=== PATIENT | male | born 1940 ===

== ENCOUNTER 2018-12-23 08:52 | Inpatient (IN) | payer MEDICARE ==
--- NOTE | 2018-12-19 10:30 | Rehab Joint Replacement Pre-Op ---
Rehab Joint Replacement Pre-Op - Pre-Op Visit Reviewed Items Scheduled for Post Op Visit: No Pre-Op Visit Comment: Pt states that he has had total knee replacements previously but not hip surgery. Pt states that he had PT prior to this surgery and after his knee surgeries and plans to use that same clinic after this surgery as well. Josue Hose/Garment Measurement TKR - Knee High: N/A Josue Hose/Garment Measure THR - Thigh High: Yes (Ankle circumference 9", calf 15 1/4", thigh 22 1/4", leg length 29 1/2" from gluteal fold to heel. Pt measures for large regular compression garments.) Exercise Reviewed: Yes Stair Climbing: Yes Cane/Walker/Crutch Training: Yes Vend Equipment - Cane or Walker and OT Kit: N/A List of Venders in the Area: Yes Shower Chair Transfers: Yes Car Transfers: Yes Bed Transfers: Yes Medical History Forms Issued: N/A Functional Scale Forms Issued: N/A Pre-Operative Intake Form - Scheduled Procedure Type of Surgical Procedure: Total Hip - Right - Patient Living Situation Current Living Situation: Spouse/Significant Other Current Housing Situation: One Story Home - Entrance Detail Current Housing Entrance: Steps, Hand Rails - None Number of Steps: 3 - Bathroom Detail Bathroom Setup: Other (Pt does have grab bars in the walk in shower and a hand held shower head.) Toilet Setup: Elevated Toilet, Grab Bars Not Present - Post-Op Home Assistance Pt has meals following surgery?: Yes Pt has transportation following surgery?: Yes - Equipment Detail Currently Own/Have Access To: Walker, Cane - Work Status Current Work Status: Retired - Additional Detail Patient Returning Home In: Other (Pt to go home in a van after surgery.) Patient is scheduled for the following: Home PT (Pt states that he is to have 2 weeks of in home PT then transfer to outpatient near his home.)
[~2018-12-23 08:52] MED LIST: ACETAMINOPHEN 500 MG TABLET PO ONE; CEFAZOLIN 2 Gram 2 GM/50 ML BAG IVPB ONE; CELECOXIB 100 MG CAPSULE PO ONE; FAMOTIDINE 20MG TABLET PO ONE; METOCLOPRAMIDE 10 MG TABLET PO ONE; SCOPOLAMINE 1 PATCH TDSY TD ONE; VANCOMYCIN 1GM/200ML PREMIX 1 GM/200 ML PIGGYBACK IVPB ONE
[2018-12-23] MEDS ORDERED: RINGERS SOLUTION,LACTATED 1,000 ML IV ONE ×2 (12:45→14:56)
[2018-12-23 13:07] LABS: ABO GROUP A; ANTIBODY SCREEN NEGATIVE (NEGATIVE); RH TYPE POSITIVE
[2018-12-23] MEDS ORDERED: ACETAMINOPHEN W/ CODEINE 300MG/30MG TABLET PO PRN ×2 (14:16)
[2018-12-23] MEDS ORDERED: HYDROMORPHONE HCL 2 MG/ML VIAL IM PRN ×2 (14:16)
[2018-12-23] MEDS ORDERED: BISACODYL 10 MG SUPP RC PRN (14:16)
[2018-12-23] MEDS ORDERED: ONDANSETRON HCL IV 4 MG/2 ML VIAL IVP PRN (14:16)
[2018-12-23] MEDS ORDERED: KETOROLAC 30 MG/ML VIAL IVP PRN (14:16)
[2018-12-23] MEDS ORDERED: DIPHENHYDRAMINE HCL 25 MG CAPSULE PO PRN (14:16)
[2018-12-23] MEDS ORDERED: TRAMADOL HCL 50 MG TABLET PO PRN ×2 (14:16)
[2018-12-23] MEDS ORDERED: NALOXONE 0.4 MG/1 ML VIAL IVP PRN (14:16)
[2018-12-23] MEDS ORDERED: HYDROCODONE/APAP 5/325MG TABLET PO PRN ×2 (14:16)
[2018-12-23] MEDS ORDERED: ACETAMINOPHEN W/ CODEINE 300MG/60MG TABLET PO PRN (14:16)
[2018-12-23] MEDS ORDERED: PROMETHAZINE HCL 12.5 MG in 0.9 % SODIUM CHLORIDE 100ML 50 ML IVPB PRN (14:16)
[2018-12-23] MEDS ORDERED: AL HYDROX/MAG HYDROX 30ML UD PO PRN (14:16)
[2018-12-23] MEDS ORDERED: ZOLPIDEM TARTRATE 5 MG TABLET PO PRN (14:16)
[2018-12-23] MEDS ORDERED: METOCLOPRAMIDE HCL 10 MG/2 ML VIAL IVP PRN (14:16)
[2018-12-23] MEDS ORDERED: MAGNESIUM HYDROXIDE 30 ML UDC PO PRN (14:16)
[2018-12-23] MEDS ORDERED: ACETAMINOPHEN 325 MG TAB PO PRN (14:16)
[2018-12-23] MEDS ORDERED: HYDROCODONE/APAP 7.5/325MG TABLET PO PRN (14:16)
[2018-12-23] MEDS ORDERED: BUPIVACAINE 0.5% W/EPI MPF 30 ML VIAL SQ ONE ×2 (14:52)
[2018-12-23] MEDS ORDERED: BUPIVACAINE LIPOSOME 266MG/20ML VIAL SQ ONE (14:52)
[2018-12-23] MEDS ORDERED: VANCOMYCIN HCL 1 GM VIAL IR ONE (14:54)
[2018-12-23] MEDS ORDERED: VANCOMYCIN HCL 1 GM VIAL IU ONE (14:54)
[2018-12-23] MEDS ORDERED: DEXTROSE 5 % AND 0.9 % NACL 1,000 ML IV PRN (16:30)
[2018-12-23] MEDS ORDERED: KETOROLAC 30 MG/ML VIAL IVP ONE (16:49)
[2018-12-23] MEDS: FERROUS SULFATE 325 MG TAB PO SCH (21:19)
[2018-12-23] MEDS: DOCUSATE SODIUM 100 MG CAPSULE PO SCH (21:19)
[2018-12-23] MEDS: METFORMIN 500MG PO SCH (21:22)
[2018-12-23] MEDS: GLIPIZIDE 5 MG PO SCH (21:22)
[2018-12-24] MEDS: VANCOMYCIN 1GM/200ML PREMIX 1 GM/200 ML PIGGYBACK IVPB SCH ×2 (00:28→11:04)
[2018-12-24 07:09] LABS: HEMATOCRIT 42.6 % (42.0-52.0); HEMOGLOBIN 13.5 gm/dl (14.0-18.0)
--- NOTE | 2018-12-24 08:26 | RADIOLOGY REPORT ---
EXAM: RIGHT HIP HISTORY: POSTOP HIP REPLACEMENT. TECHNIQUE: Portable AP view of the right hip was obtained. Comparison: None. FINDINGS: The prosthesis appears appropriately positioned. No sign of any fracture or any immediate complication. IMPRESSION: RIGHT HIP REPLACEMENT WITHOUT ANY IMMEDIATE BONE COMPLICATIONS EVIDENT. JOB NUMBER: [id number] MTDD
--- NOTE | 2018-12-24 09:56 | Rehab Evaluation ---
Patient Information - Patient Information Diagnosis: R hip DJD Ordered Treatment: PT Evaluate and Treat Status: Initial Evaluation Surgery: Yes (R THR) Date of Surgery: 12/23/18 Past Medical/Surgical Hx: PAST MEDICAL/SURGICAL HISTORY Past Surgical History PARTIAL AMPUTATION THUMB BILAT TKA C SCOPES BILAT CATARACTS TONSILS PMH - Respiratory Hx Respiratory Disorders No PMH - Cardiovascular Hx Cardiovascular Disorders Yes Exercise Tolerance Fair Comment: HYPERLIPIDEMIA PMH - Neuro Hx Neurological Disorders No PMH - GI Hx Gastrointestinal Disorders Yes PMH - Hx Genitourinary Disorders Yes Hx Bladder Problem Yes: NOCTURIA WITH URGENCY Hx Prostate Problems Yes: ELEVATED PSA PMH - Endocrine Hx Endocrine Disorders Yes Hx Diabetes Yes: DX'D 2012 Hx of NIDDM Yes Comment: BLOOD SUGARS RUNNING AROUND 150 RIGHT NOW PMH - Musculoskeletal Hx Musculoskeletal Disorders Yes Hx Arthritis Yes: RA PMH - Psych Hx Psychiatric Problems Yes Hx Depression Yes: SITUATIONAL PMH - Hematology/Oncology Hx Hematology/Oncology No Disorders Premorbid Status: Detail (The patient was independent with all mobility prior to surgery.) Social History: Detail (The patient lives with spouse in a one story house with 3 steps and no handrails at the enterance.) Precautions: [place], Fall, Other (THR precautions) - Time With Patient Total Time Spent With Patient (Min): 30 Treatment Procedures: Detail (Initial Evaluation, low complexity) Subjective Information - Subjective Information Per Patient (The patient had minimal complaints of R hip pain.) Objective Data - Mental Status Patient Orientation: Oriented x3 - Visual Perception Appears within normal limits for therapeutic activities - ROM Not within normal limits (The patient's R hip in within total hip replacement precautions. All other LE AROM is WNL.) - Strength/Tone Not within normal limits (The patient's R LE strength was not tested s/p surgery however functionally patient exhibits weakness in hip musculature( pt. requires strap to lift LE in and out of bed and cannot complete hip abduction supine). The patient's L LE strength is WFL.) - Bed Mobility Independent (The patient is able to complete supine to sit independently with use of strap to lift R LE and handrails. The patient scooting up in bed independently with use of handrails.) - Transfers Independent (The patient was independent with sit to and from stand transfer.) - Balance Balance Sitting: Good Balance Standing: Good - Sensation Intact - Gait Detail (The patient ambulated with front wheeled walker WBAT on the R LE independently a distance of 100 feet x 1. The patient ambulated on 3 stairs with use of standard cane and railing using proper technique with supervision for safety.) Therapy Assessment - Therapy Assessment Detail (The patient was independent with ambulation and transfers. The patient required use of strap and handrails with bed mobility. Pt. had leg construction skills teacher at home and states his will assist with bed mobility if needed.) Patient Education - Patient Education Teaching Topic: Exercise/Activity (The patient completed THR HEP including: hip abduction with strap, gluteal squeezes, quad sets, hamstring sets, ankle pumps, and heel slides.), Precautions (The patient recalled 2 out of 3 hip precautions without verbal cues. The pt. demonstrated good understanding of THR precautions.) Response: Reinforcement Needed Teaching Method: Discussion, Handout Teaching Recipient: Patient Barriers To Learning: None Problem List - Problem List Physical Therapy Problem List: Detail (Decreased R LE strength s/p surgery.) Goals - Goals Physical Therapy Goals: The patient has met all inpatient PT goals. Prognosis - Prognosis Good Plan - Plan Physical Therapy Plan: The patient is discharged from inpatient PT. The patient is to receive Home PT.
[2018-12-24] MEDS ORDERED: FOLIC ACID 1MG PO SCH (10:00)
[2018-12-24] MEDS ORDERED: CELECOXIB 100 MG CAPSULE PO SCH (10:00)
[2018-12-24] MEDS ORDERED: RIVAROXABAN 10 MG TABLET PO SCH (10:00)
[2018-12-24] MEDS ORDERED: FENOFIBRATE 145MG PO SCH (10:00)
[2018-12-24] MEDS: FERROUS SULFATE 325 MG TAB PO SCH (11:00)
[2018-12-24] MEDS: DOCUSATE SODIUM 100 MG CAPSULE PO SCH (11:01)
[2018-12-24] MEDS: GLIPIZIDE 5 MG PO SCH (11:03)
[2018-12-24] MEDS: METFORMIN 500MG PO SCH (11:04)
[2018-12-24] MEDS ORDERED: PHENYLEPHRINE HCL 10 MG/ML VIAL IVP ONE (12:00)
[2018-12-24] MEDS ORDERED: EPHEDRINE SULFATE 50 MG/ML ML IV ONE (12:00)
[2018-12-24] MEDS ORDERED: *PACU ONLY* KETAMINE HCL 10 MG/ML (20ML) VIAL IV ONE (12:00)
[2018-12-24] MEDS ORDERED: PROPOFOL 10 MG/ML VIAL IV ONE (12:00)
[2018-12-24] MEDS ORDERED: LIDOCAINE 2% MDV (20MG/ML) 20ML VIAL IV ONE (12:00)
[2018-12-24] MEDS ORDERED: MIDAZOLAM HCL 2MG/2ML VIAL IV ONE (12:00)
--- NOTE | 2018-12-24 12:12 | Rehab Evaluation ---
Patient Information - Patient Information Diagnosis: R hip DJD Ordered Treatment: OT Evaluate and Treat Status: Initial Evaluation Surgery: Yes (R THR) Date of Surgery: 12/23/18 Past Medical/Surgical Hx: PAST MEDICAL/SURGICAL HISTORY Past Surgical History PARTIAL AMPUTATION THUMB BILAT TKA C SCOPES BILAT CATARACTS TONSILS PMH - Respiratory Hx Respiratory Disorders No PMH - Cardiovascular Hx Cardiovascular Disorders Yes Exercise Tolerance Fair Comment: HYPERLIPIDEMIA PMH - Neuro Hx Neurological Disorders No PMH - GI Hx Gastrointestinal Disorders Yes PMH - Hx Genitourinary Disorders Yes Hx Bladder Problem Yes: NOCTURIA WITH URGENCY Hx Prostate Problems Yes: ELEVATED PSA PMH - Endocrine Hx Endocrine Disorders Yes Hx Diabetes Yes: DX'D 2012 Hx of NIDDM Yes Comment: BLOOD SUGARS RUNNING AROUND 150 RIGHT NOW PMH - Musculoskeletal Hx Musculoskeletal Disorders Yes Hx Arthritis Yes: RA PMH - Psych Hx Psychiatric Problems Yes Hx Depression Yes: SITUATIONAL PMH - Hematology/Oncology Hx Hematology/Oncology No Disorders Premorbid Status: Detail (The patient was independent with all mobility prior to surgery. Spouse was responsible for home mgmt, meal prep and laundry tasks.) Social History: Detail (The patient lives with spouse in a one story house with 3 steps and no handrails at the entrance. He has a walk in shower with grab bars but no seat and an elevated toilet with no grab bars. He has a straight cane, 2 wheeled walker, long shoe horn and sock aid.) Precautions: [place], Fall, Other (THR precautions) - Time With Patient Total Time Spent With Patient (Min): 40 Treatment Procedures: Detail (OT eval low complexity) Subjective Information - Subjective Information Per Patient, Other (Spouse) Objective Data - Pain Pain Present: Yes (03/21) - Mental Status Patient Orientation: Oriented x3 - Visual Perception Appears within normal limits for therapeutic activities - ROM Within normal limits ([place] UE AROM WNL) - Strength/Tone Within normal limits ([place] UE strength WNL) - Coordination Appears within normal limits for therapeutic activities - Bed Mobility Needs Assist (Pt requires assist to move right LE to EOB. He reports he has a leg web manager at home to use.) - Transfers Independent (Ind with sit to stand from EOB) - Balance Balance Sitting: Good Balance Standing: Good - Sensation Intact - ADL's/IADL's Detail (Pt educated and able to demonstrate learning of modified LE dressing techniques using chargeback specialist and long shoe horn while adhering to total hip precautions including doffing slipper socks, donning pants and tennis shoes. Pt reports he knows how to use the sock aid. Pt purchased a chargeback specialist and long bath sponge. Reviewed kitchen and shower safety and modifications, pt verbalized understanding.) Therapy Assessment - Therapy Assessment Detail (Pt is Ind with modified LE dressing techniques.) Problem List - Problem List Physical Therapy Problem List: Detail (Decreased R LE strength s/p surgery.) Occupational Therapy Problem List: Detail (No current IP OT problems identified.) Goals - Goals Physical Therapy Goals: The patient has met all inpatient PT goals. Occupational Therapy Goals: No current IP OT goals identified. Prognosis - Prognosis Good Plan - Plan Physical Therapy Plan: The patient is discharged from inpatient PT. The patient is to receive Home PT. Occupational Therapy Plan: No further IP OT recommended. Thank you for this referral.
--- NOTE | 2018-12-25 08:20 | Operative Note ---
DATE OF SURGERY: 12/23/2018 PREOPERATIVE DIAGNOSIS: Right hip end-stage arthrosis. POSTOPERATIVE DIAGNOSIS: Right hip end-stage arthrosis. OPERATION: Right total hip arthroplasty. SURGEON: Andrew Graves MD ANESTHESIA: Spinal. ANESTHESIA PROVIDER: GRICEL Adkins COMPLICATIONS: None. ESTIMATED BLOOD LOSS: Minimal. OPERATIVE FINDINGS: Severe [id number] hip arthrosis. COMPONENTS PLACED: A 2 g vancomycin cemented Neil [employer] Nephew cemented Synergy collared stem, high offset size 14 with a 32 plus 0 mm cobalt chrome femoral head component, a 52 mm 3-hole Reflection acetabular shell component with 1 acetabular screw centrally-threaded cap and 2 other screw caps, and then a 35- degree hooded highly cross-linked polyethylene liner. INDICATION: This is a 78-year-old male who has had persistent pain and dysfunction in his hip for several years. Failed nonoperative treatments. Scheduled for hip replacement. I explained all risks and benefits in detail for the diagnosis and procedure including but not limited to infection, nerve injury, vessel injury, persistent pain, stiffness, numbness, tingling in his hip, periprosthetic fracture, need for resection arthroplasty should the components become infected or loosen, nerve injury, vessel injury, blood clot, limb length discrepancy, need for further procedures, and need for anticoagulation to prevent blood clots and risks associated with these medications. All his questions were answered. The rehab course was outlined. He agreed to proceed. PROCEDURE: The patient brought to the OR and placed in the left lateral decubitus position. The right hip and lower extremity prepped and draped in sterile fashion. The right hip was prepped again using Chloraprep and draped. Intraoperative timeout was performed. Next, we marked an incision over the posterior gluteal area for a posterior approach. Infiltrated with 0.5% Marcaine with epinephrine, 2 g tranexamic acid, Exparel mixture. We used Aquamantys cautery the entire case cauterizing each layer of tissue. Skin and subcutaneous tissue dissected down to gluteal fascia, split longitudinally. The subgluteal plane was bluntly dissected. Skin was cauterized with Aquamantys. The subgluteal plane was bluntly dissected, placed the self-retainer in there, identified the capsule and sciatic nerve, carefully protected at all times. Next, then released the short external rotators. Then incised the capsule along the neck and then transverse superiorly and inferiorly to release the capsule and then dislocated the femoral head without difficulty. It was a deformed femoral head, oval shape, devoid of any cartilage. We resected the femoral head about 1.5 cm above the lesser trochanter and inserted the box osteotome and started reaming by hand with 8 mm reamer working in 1 mm increments up to size 14. We stopped there, as it was a good fit proximally and distally and it was a preoperative measure. Next, we then broached to 12 in 15 degrees anteversion calcar plane and then a 13 and then a 14. We stopped there and planned on using a 14 cemented stem. Next, then attention turned to the acetabulum. Released the capsule anteriorly and inferiorly. Placed a retractor there and then placed another inferior acetabular retractor. Then released some of the labrum and capsule around the periphery. Next, we started reaming in 1 mm increments and 45 degrees inclination and 20 degrees anteversion until we reamed up to a size 51 mm reamer. We had a good peripheral and central fit. Next, we inserted the 52 shell and it fit nicely, securely peripherally and centrally and again 45 degrees inclination and 20 degrees anteversion. Next, we brought in the real 3-hole acetabular Reflection shell component after irrigating the copiously the acetabulum, impacted that down using the helicopter guide again in 45 degrees inclination and 20 degrees anteversion. Next, we drilled the posterior central superior quadrant screw hole and inserted the 40 mm screw there. We had excellent purchase. Next, we then placed the trial liner and then the trial stem was placed. We did a trial reduction. Best combination of range of motion, stability, and limb lengths was with a 32 plus 0 mm femoral head component. This allowed for symmetric leg lengths, flexion to 90, internal rotation to 70-80 before the hip dislocated. Stability with extension, external rotation. This is the size that we used. Next, we removed all trial components, irrigated copiously, mixed cement, and placed the 2 screw caps centrally-threaded screw cap in the acetabular shell and then impacted down the real acetabular liner with the ojhnson in posterior supine quadrant. Then placed the cement restricted distally in the femoral canal, injected the cement in symmetrical technique, removed the suction catheter and then inserted the real femoral stem with the johnson again in 15 degrees of anteversion until it was flush with the medial calcar. We held it there until the cement hardened. Next, we cleaned and dried the trunnion and impacted down the real femoral head. Next, we reduced the hip and found that the range of motion to be the same. We irrigated copiously. We thoroughly cauterized with our Aquamantys electrocautery all deep layers, capsule, short external rotators working out superficially to the gluteus and subcutaneous skin. Next, we closed securely the gluteal fascia with running #2 quill suture, again closed the skin with buried 2-0 Vicryl and a TIFFANIE dressing applied. The patient tolerated the procedure well. No intraoperative complications. All sponge, needle, and blade counts correct. Recovery stable. Neurovascularly intact. He can be discharged to the floor and likely discharged in 1 day tomorrow home with followup therapy. KARI
== END 2018-12-24 13:06 | disposition home or self-care (01) | DRG 470 ==
LOC: MEDSURG 11:54
PROVIDERS: ADMIT Orthopaedic Surgery; ATTEND Orthopaedic Surgery
PROC: 0SR9069 Replacement of Right Hip Joint with Oxidized Zirconium on Polyethylene Synthetic Substitute, Cemented, Open Approach (ICD-10-PCS; principal; 2018-12-23 14:00)
DX: M16.11 Unilateral primary osteoarthritis, right hip (principal); M06.9 Rheumatoid arthritis, unspecified; E78.00 Pure hypercholesterolemia, unspecified; E11.9 Type 2 diabetes mellitus without complications
CPT/HCPCS: 36416; 82948; 85014; 85018; 86850; 86900; 86901; J1885; J2370; J3370; J7042; J7120